=== PATIENT | male | born 1990 | race Caucasian/White ===

== ENCOUNTER → 2017-05-23 11:48 | Outpatient (CLI) | payer OTHER, SELFPAY ==
--- NOTE | 2017-05-23 16:40 | STRESSREP ---
Stress Test Report Exercise stress test 26-year-old man with history of chest pain. Stress protocol Resting EKG demonstrates normal sinus rhythm with a rate of 93 bpm. Normal intervals and noted. Resting blood pressure 732/90 mmHg. The patient sized according to regular Issa protocol for total duration of 10 minutes completing 1 minute into stage IV of the Issa protocol. The maximum heart rate attained was 184 bpm which was 94% of maximum predicted heart rate the maximum workload attained was 11.7 metabolic equivalents. At rest there were no ST or T-wave changes noted suggest ischemia and at peak exercise upsloping ST changes only were noted with no meet the criteria for ischemia. The resting blood pressure is 132/90 with a peak blood pressure 164/86 mmHg. Rate pressure product was 20,000. No clinical angina was noted. Arrhythmias were noted. Conclusion: Exercise stress test with no evidence of ischemia at a high workload. Excellent functional capacity.
--- NOTE | 2017-05-23 16:43 | STRESSREP_ITS ---
Stress Test Report Exercise stress test 26-year-old man with history of chest pain. Stress protocol Resting EKG demonstrates normal sinus rhythm with a rate of 93 bpm. Normal intervals and noted. Resting blood pressure 732/90 mmHg. The patient sized according to regular Issa protocol for total duration of 10 minutes completing 1 minute into stage IV of the Issa protocol. The maximum heart rate attained was 184 bpm which was 94% of maximum predicted heart rate the maximum workload attained was 11.7 metabolic equivalents. At rest there were no ST or T-wave changes noted suggest ischemia and at peak exercise upsloping ST changes only were noted with no meet the criteria for ischemia. The resting blood pressure is 132/90 with a peak blood pressure 164/86 mmHg. Rate pressure product was 20, 000. No clinical angina was noted. Arrhythmias were noted. Conclusion: Exercise stress test with no evidence of ischemia at a high workload. Excellent functional capacity.
== END ==
PROVIDERS: Family Provider Family Medicine; PCP Family Medicine; Visit Provider Nurse Practitioner Family
DX: I10 Essential (primary) hypertension (principal); R94.31 Abnormal electrocardiogram [ECG] [EKG]
CPT/HCPCS: 93017

== ENCOUNTER 2018-12-08 14:36 | Emergency (ER) | payer OTHER, SELFPAY ==
[2018-12-08 14:38] VITALS: BP 161/93; PULSE 106; RESP 18; TEMP 37; O2SAT 98; BMI 39.2
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
[2018-12-08 15:24] VITALS: BP 155/91; PULSE 97; RESP 16; O2SAT 99
== END 2018-12-08 15:26 | disposition home or self-care (01) ==
PROVIDERS: Emergency Provider Physician Assistant Medical; Family Provider Family Medicine; PCP Family Medicine
DX: T67.5XXA Heat exhaustion, unspecified, initial encounter (principal); I10 Essential (primary) hypertension; Z87.891 Personal history of nicotine dependence; Z79.899 Other long term (current) drug therapy
CPT/HCPCS: 99285; J7030

== ENCOUNTER → 2019-04-23 12:56 | Outpatient (CLI) | payer OTHER, SELFPAY ==
--- NOTE | 2019-04-23 13:05 | RAD_ITS ---
STUDY: X-RAY - LUMBAR SPINE REASON FOR EXAM: Male, 28 years old. Lumbar pain TECHNIQUE: 5 view(s) of the lumbar spine were obtained with flexion and extension views. COMPARISON: None FINDINGS: Normal lumbar lordosis. There is no substantial scoliosis. There is a normal alignment of the vertebrae. Normal flexion and extension. No subluxations. Normal vertebral bodies and endplates. Normal disc space heights. The soft tissue structures are unremarkable. RAD/L/S Spine Min 4 Views IMPRESSION: Normal x-ray examination of the lumbar spine. Electronically Signed: Dylan Gordon MD at 23:59 EST , Service support ,
--- NOTE | 2019-04-23 13:05 | RAD_ITS ---
STUDY: X-RAY - LUMBAR SPINE REASON FOR EXAM: Male, 28 years old. LUMBAR PAIN TECHNIQUE: 4 view(s) of the lumbar spine were obtained with flexion and extension views. COMPARISON: None FINDINGS: Normal lumbar lordosis. There is no substantial scoliosis. There is a normal alignment of the vertebrae. Normal flexion and extension. No subluxations. Normal vertebral bodies and endplates. Normal disc space heights. There is no demonstrated fracture. The soft tissue structures are unremarkable. RAD/L/S Spine Min 4 Views IMPRESSION: Normal x-ray examination of the lumbar spine. Electronically Signed: Dylan Gordon MD at 23:58 EST , Service support ,
== END ==
PROVIDERS: PCP Family Medicine
DX: M51.26 Other intervertebral disc displacement, lumbar region (principal)
CPT/HCPCS: 72110

== ENCOUNTER → 2022-04-09 | Outpatient (CLI) | payer OTHER, SELFPAY ==
[2022-04-09 12:24] LABS: Absolute Lymphocyte Count 1.84 X10^3/uL (0.83-4.51); Absolute Neutrophil Count 6.5 X10^3/uL (2.0-7.7); Basophil# 0.11 X10^3/uL; Basophil% 1.2 % (0-1); Eosinophil# 0.14 X10^3/uL; Eosinophils% 1.5 % (0-5); Hemoglobin 15.3 g/dL (13.0-16.5); Lymphocyte # 1.84 X10^3/ul (0.83-4.51); Lymphocyte % 19.6 % (19-41); Mean Corp Hgb Conc 33.3 g/dL (32-36); Mean Corpuscular Hgb 27.8 pg (27.0-32.0); Mean Corpuscular Volume 83.5 fL (80-94); Monocyte# 0.68 X10^3/uL; Monocyte% 7.3 % (0-10); NRBC Flagged by Analyzer 0 % (0-5); Neutrophil # 6.52 X10^3/uL (2.7-7.7); Neutrophil % 69.5 % (47-70); Platelet Count 316 K/mm3 (150-450); RBC Distribution Width CV 12.4 % (11.6-14.6); RBC Distribution Width SD 37.5 fl (35.1-43.9); Red Blood Count 5.51 M/mm3 (4.6-6.2); White Blood Count 9.4 K/mm3 (4.4-11.0)
[2022-04-09 12:48] LABS: Hemoglobin A1c 5.2 % (3.8-5.6)
[2022-04-09 13:04] LABS: ALB/GLOB Ratio 1.2 RATIO (0.9-2.4); AST(SGOT) 21 U/L (15-37); Alanine Aminotransfer ALT/SGPT 58 U/L (16-61); Albumin, Serum 4.2 g/dL (3.2-5.0); Alkaline Phosphatase 89 U/L (45-117); Anion Gap 7 (5-15); BUN 19 mg/dL (7-18); BUN/Creat Ratio 17.3 RATIO (10-20); Calcium,Total 9.4 mg/dL (8.5-10.1); Chloride 103 mmol/L (98-107); Cholesterol 187 mg/dL (200); EST Glomerular Filtration Rate 83 mL/min (>60); Est Glom Filt Rate - Afr Amer 101 mL/min (>60); Globulin 3.6 g/dL (2.2-4.2); Glucose 110 mg/dL (74-106); High Density Lipoprotein 37 mg/dL; Potassium 4.7 mmol/L (3.5-5.1); Protein, Total 7.8 g/dL (6.4-8.2); Sodium Level 137 mmol/L (136-145); Thyroid Stim Hormone (TSH) 1.54 uIU/mL (0.358-3.74); Triglycerides 115 mg/dL; Very Low Density Lipoprotein 23 mg/dL (5-40)
== END | disposition home or self-care (01) ==
LOC: BIMLAB 09:55
PROVIDERS: PCP Nurse Practitioner Family; Referring Provider Nurse Practitioner Family; Visit Provider Nurse Practitioner Family
DX: I10 Essential (primary) hypertension (principal); R00.0 Tachycardia, unspecified; E66.9 Obesity, unspecified; E78.5 Hyperlipidemia, unspecified
CPT/HCPCS: 36415; 80053; 80061; 83036; 84443; 85025

== ENCOUNTER → 2023-04-20 | Outpatient (CLI) | payer OTHER, SELFPAY ==
--- NOTE | 2023-04-20 09:30 | RAD_ITS ---
STUDY: X-RAY - LUMBAR SPINE REASON FOR EXAM: Male, 32 years old. LOW BACK PAIN TECHNIQUE: 3 view(s) of the lumbar spine were obtained. COMPARISON: None FINDINGS: Normal lumbar lordosis. There is no substantial scoliosis. There is a normal alignment of the vertebrae. Normal vertebral bodies and endplates. Normal disc space heights. The soft tissue structures are unremarkable. RAD/Lumbar Spine 2 or 3 Views IMPRESSION: Normal x-ray examination of the lumbar spine. Electronically Signed: Salty Lowery MD at 16:54 EST ,
--- NOTE | 2023-04-20 09:30 | RAD_ITS ---
STUDY: X-RAY - RIGHT HAND REASON FOR EXAM: Male, 32 years old. PAIN IN RIGHT HAND TECHNIQUE: 3 view(s) of the hand. COMPARISON: None. FINDINGS: Normal radiocarpal articulation. Normal distal radioulnar joint. Normal visualized carpal bones. Normal carpal articulations Normal carpometacarpal articulation of the thumb. Normal second through fifth carpometacarpal joints. Normal metacarpi. Normal metacarpophalangeal joint of the thumb. Normal interphalangeal joint of the thumb. Normal proximal and distal phalanges of the thumb. Normal metacarpophalangeal joints of the second through fifth fingers. Normal proximal and distal interphalangeal joints of the second through fifth fingers. Normal phalanges of the second through fifth fingers. The soft tissue structures are unremarkable. RAD/Hand 2 Views IMPRESSION: Normal x-ray examination of the hand. Electronically Signed: Salty Lowery MD at 17:05 EST ,
--- OUTSIDE RECORDS SUMMARY | 2023-04-20 09:43 | XMS RPT_ITS | CCD ---
Author Name Unknown Address [address] [place] [address] Organization [facility] Care Team Providers Care Card Processing Clerk Name Role Phone Lady HURSTN.SUPERVISOR PERSONNEL CLERKS, DNP, Ismael Primary Care Provider Medications Current Medications Medication Drug Class(es) Dates Sig (Normalized) Sig (Original) lisinopril 10 mg oral tablet (2 sources) Angiotensin Converting Enzyme Inhibitor Start: 10-24-2020 End: 06-15-2022 take 1 tablet by mouth once daily lisinopril (ZESTRIL, PRINIVIL) 10 mg tablet Indications: Hypertension, essential Take 1 tablet by mouth once daily. 90 tablet 3 06/15/2021 06/15/2022 Active Completed/Discontinued Medications Medication Drug Class(es) Dates Sig (Normalized) Sig (Original) CPAP (2 sources) Start: 11-16-2018 CPAP Indicatio ns: Mild obstructive sleep apnea Changing DME: Auto PAP @ 5-20 cm of water with humidification. Mask (per patient preference) optional chin strap (if indicated) , filters, tubing, humidifier and lifetime supplies. 1 Device 0 11/16/2018 Active Problems Problem Classification Problem Date Documented Da te Episodic/Chronic Cardiac dysrhythmias (2 sources) Tachycardia; Translations: [Tachycardia, unspecified] Onset: 10-24-2020 Episodic Disorders of lipid metabolism (1 source) Hyperlipidemia; Translations: [Hyperlipidemia, unspecified] Onset: 11-30-2017 11-30-2017 Chronic Essential hypertension (2 sources) Essential hypertension; Translations: [Essential (primary) hypertension] Onset: 05-10-2017 Chronic Other nutritional; endocrine; and metabolic disorders (2 sources) Body mass index 40+ - severely obese; Translations: [Morbid (severe) obesity due to excess calories] Onset: 07-18-2017 Chronic Residual codes; unclassified (2 sources) Obstructive sleep apnea syndrome; Translations: [Obstructive sleep apnea (adult) (pediatric)] Onset: 08-02-2017 Chronic Results Test Name Value Interpretation Reference Range Facil ity Vital Signs Date Time Vital Sign Value Performing Clinician Claudia nguyen 06-15-2021 13:02-0400 Body weight 140.62 kg Ismael Narayanan APRN.CNP, DNP Work Phone: [facility] 06-15-2021 13:02-0400 Diastolic blood pressure 78 mm[Hg] Ismael Narayanan APRN.CNP, DNP Work Phone: [facility] 06-15-2021 13:02-0400 Heart rate 84 /min Ismael Narayanan APRN.CNP, DNP Work Phone: [facility] 06-15-2021 13:02-0400 Respiratory rate 14 /min Ismael Narayanan APRN.CNP, DNP Work Phone: [facility] 06-15-2021 13:02-0400 Systolic blood pressure 132 mm[Hg] Ismael Narayanan APRN.CNP, DNP Work Phone: [facility] Encounters Encounter Date Encounter Type Care Provider Facility Start: 06-15-2021 End: 06-15-2021 Patient encounter procedure Ismael Narayanan APRN.CNP, DNP Work Phone: [facility] Procedures Date Procedure Procedure Detail Performing Clinician Start: 10-24-2020 Adult depression screening assessment Ismael Narayanan APRN.CNP, DNP Work Phone: Plan of Treatment Date Care Activity Detail Author Start: 06-15-2022 ANNUAL PCP TEAM BLANKET FOLDER MICHELLE DISEASE VISIT ANNUAL PCP TEAM CHRONIC DISEASE VISIT [facility] Start: 06-15-2022 COVID-19 VACCINE (1) COVID-19 VACCIN E (1) [facility] Immunizations Immunization Date Immunization Notes Care Provider Jesús hawkins 10-09-2009 Meningococcal, MCV4, unspecified conjugate formulation(groups A, C, Y and W-135) Ismael Narayanan APRN.CNP, DNP Work Phone: [facility] 09-26-2007 tetanus toxoid, redu denise diphtheria toxoid, and acellular pertussis vaccine, adsorbed Ismael Blaz LAMP INSPECTOR.[facility] Work Phone: [facility] 09-30-2005 hepatitis B vaccine, pediatric or pediatric/adolescent dosage Ismael Blagia LAMP INSPECTOR.[facility] Work Phone: [facility] Work Phone: 12-12-2004 hepatitis B immune globulin Ismael Blagia LAMP INSPECTOR.[facility] Work Phone: [facility] 10-31-2004 hepatitis B immune globulin Ismael Blagia LAMP INSPECTOR.[facility] Work Phone: [facility] 11-11-1997 diphtheria, tetanus toxoids and pertussis vaccine Ismael Blaz LAMP INSPECTOR.[facility] Work Phone: [facility] 11-11-1997 measles, mumps and rubella virus vaccine Ismael Blaz LAMP INSPECTOR.[facility] Work Phone: [facility] 11-11-1997 poliovirus vaccine, inactivated Ismael Blaz LAMP INSPECTOR.[facility] Work Phone: [facility] 10-28-1997 poliovirus vaccine, inactivated Ismael Blaz LAMP INSPECTOR.[facility] Work Phone: [facility] 12-18-1995 haemophilus influenz ae type b vaccine, HbOC conjugate Ismael Blaz LAMP INSPECTOR.[facility] Work Phone: [facility] 03-30-1993 diphtheria, tetanus toxoids and pertussis vaccine Ismael Blaz LAMP INSPECTOR.[facility] Work Phone: [facility] 03-30-1993 poliovirus vaccine, inactivated Ismael Blaz LAMP INSPECTOR.[facility] Work Phone: [facility] 12-17-1992 measles, mumps and rubella virus vaccine Ismael Blaz LAMP INSPECTOR.[facility] Work Phone: [facility] 03-24-1992 diphtheria, tetanus toxoids and pertussis vaccine Ismael Blaz LAMP INSPECTOR.[facility] Work Phone: [facility] 03-24-1992 haemophilus influenz ae type b vaccine, HbOC conjugate Ismael Blaz LAMP INSPECTOR.[facility] Work Phone: [facility] 01-21-1992 diphtheria, tetanus toxoids and pertussis vaccine Ismael Narayanan LAMP INSPECTOR.[facility] Work Phone: [facility] 01-21-1992 haemophilus influenz ae type b vaccine, HbOC conjugate Ismael Narayanan APRN.[facility] Work Phone: [facility] 01-21-1992 poliovirus vaccine, inactivated Ismael Narayanan APRN.[facility] Work Phone: [facility] 1991 diphtheria, tetanus toxoids and pertussis vaccine Ismael Narayanan LAMP INSPECTOR.[facility] Work Phone: [facility] 1991 haemophilus influenz ae type b vaccine, HbOC conjugate Ismael Narayanan APRN.PAZ ROLAND Work Phone: [facility] Payers Date Payer Category Payer Unknown O [employer] [id number] 2016-Present [phone] [address] [place] [address] O [id number] 1991 Unknown [id number] Unknown [id number] Unknown [id number] Social History Date Type Detail Facility [facility] Work Phone: Start: 06-22-2010 Tobacco use and exposure Smokeless tobacco non-user [facility] Work Phone: Start: 06-15-2021 Alcohol intake 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 Author Type: Nurse Practitioner Type: Progress Notes Filed: 06/15/2021 4:41 PM Note Text: Chief Complaint Patient presents with: F/U 6 months Episodes of increased HR HPI Susana Stephens is a 30 year old male who presents here today for a established physical exam. Presents to the [facility] as an established patient of mine. No recent urgent care visits, ER visits, or hospitalizations Past Medical History: HTN, BREE, chronic back pain, obesity, tachycardia Specialty Providers: None HTN: Here for routine follow up appt. Diagnosed with high blood pressure several years ago. Placed on lisinopril. Has been on lisinopril for several years without any significant dosage changes. Denies side effects from medication. Compliant with medication. Blood pressures typically well controlled. Denies any headaches, lightheadedness or dizziness. No chest pain, difficulty breathing or shortness of breath. Lab work, Zio patch and physical exam completed. Unremarkable findings. Zio patch results unremarkable. Continues to have high normal heart rate. Heart rates have been stable. Denies CP or SOB. Past medical history, appointments, medications, allergies reviewed 06/15/2021 Previous Medical History PAST MEDICAL HISTORY Diagnosis Date - Hypertension, essential 05/10/2017 - Obesity, Class III, BMI 40-49.9 (morbid obesity) ([facility]) 07/18/2017 - BREE on CPAP DME [facility] - Tension headache Previous Surgical History PAST SURGICAL HISTORY Procedure Laterality Date - TONSILLECTOMY AND ADENOIDECTOMY Family History FAMILY HISTORY Problem Relation Age of Onset - Hypertension Mother - Prostate Cancer Maternal Grandfather - Hypertension Brother - Lipids Brother Patient Allergies ALLERGIES No Known Allergies Current Medications Current Outpatient Medications on File Prior to Visit Medication Sig - lisinopril (ZESTRIL, PRINIVIL) 10 mg tablet Take 1 tablet by mouth once daily. - CPAP Changing DME: Auto PAP @ 5-20 cm of water with humidification. Mask (per patient preference) optional chin strap (if indicated) , filters, tubing, humidifier and lifetime supplies. No current facility-administered medications on file prior to visit. Social History Social History Tobacco Use - Smoking status: Passive Smoke Exposure - Never Smoker - Smokeless tobacco: Never Used - Tobacco comment: parents smoke Vaping Use - Vaping Use: Never used Substance Use Topics - Alcohol use: No - Drug use: No Review of Symptoms GENERAL: No unintentional weight loss, malaise or fevers. No night sweats RESPIRATORY: No dyspnea or shortness of breath CARDIOVASCULAR: Negative for chest pain. See HPI. EXAM: BP 132/78 Pulse 84 Resp 14 Wt (!) 140.6 kg (310 lb) BMI 43.40 kg/m? General Appearance: Well appearing, alert, in no acute distress, well-hydrated, well nourished. Morbidly obese Skin: Skin color normal Head: Normocephalic Chief Complaint Patient presents with: F/U 6 months HPI Susana Stephens is a 30 year old male who presents here today for a several day history of nausea, vomiting and diarrhea. This is an established patient of Dr. Ismael Narayanan APRN.SUPERVISOR PERSONNEL CLERKS, DNP. This is a new patient to me. Denies any recent urgent care visits, ER visits or hospitalizations. States a several day history of Past medical history, appointments, medications, allergies reviewed 06/15/2021 Previous Medical History PAST MEDICAL HISTORY Diagnosis Date - Hypertension, essential 05/10/2017 - Obesity, Class III, BMI 40-49.9 (morbid obesity) ([facility]) 07/18/2017 - BREE on CPAP DME [facility] - Tension headache Previous Surgical History PAST SURGICAL HISTORY Procedure Laterality Date - TONSILLECTOMY AND ADENOIDECTOMY Family History FAMILY HISTORY Problem Relation Age of Onset - Hypertension Mother - Prostate Cancer Maternal Grandfather - Hypertension Brother - Lipids Brother Patient Allergies ALLERGIES No Known Allergies Current Medications Current Outpatient Medications on File Prior to Visit Medication Sig - CPAP Changing DME: Auto PAP @ 5-20 cm of water with humidification. Mask (per patient preference) optional chin strap (if indicated) , filters, tubing, humidifier and lifetime supplies. - CPAP Need for supplies: suitable mask per pt preference, chin strap, head gear, humidity, tubing, lifetime supplies. G47.33 Obstructive Sleep Apnea No current facility-administered medications on file prior to visit. Social History Social History Tobacco Use - Smoking status: Passive Smoke Exposure - Never Smoker - Smokeless tobacco: Never Used - Tobacco comment: parents smoke Vaping Use - Vaping Use: Never used Substance Use Topics - Alcohol use: No - Drug use: No Review of Symptoms GENERAL: No weight loss, malaise or fevers. HEENT: Negative for frequent or significant headaches RESPI (more content not included)... [facility] 06-15-2021 Instructions Ismael Narayanan APRN.PAZ ROLAND - 06/15/2021 1:27 PM EDT Follow up with Ismael Narayanan APRN.PAZ ROLAND in 1 year Continue with Lisinopril for BP. Continue with weight loss goals. Perform fasting lab work prior to next appt. Clinic to call with results or will send through [employer]. You can schedule an appointment for lab work at our front desk manager. Please fast 12 hours prior to blood work. You may have water, medications and black coffee during that fasting time. Lab hours are from 7:30 - 5:30 pm - and from 8:00 am -12:00pm Tuesday. Return to the clinic or seek care at [facility] for any worsening signs or symptoms Healthy Habits: Recommend regular physical activity, nutrition and healthy eating habits. Consume a variety of foods every day focusing on fruits, vegetables and lean meats). Eat foods low in fat, saturated fat and cholesterol. Eat a limited amount of salt and sodium. Drink adequate amounts of water and limit sugary drinks. Exercise portion control in meal selection. Establish a mindset of a wellness approach to health. Thank you for allowing me to provide your care today. I look forward to seeing you again and maintaining your health. Ismael Narayanan APRN.PAZ ROLAND documented in this encounter [facility] 06-15-2021 History of Present illness Narrative Chief Complaint Patient presents with: F/U 6 months Episodes of increased HR HPI Susana Stephens is a 30 year old male who presents here today for a established physical exam. Presents to the [facility] as an established patient of mine. No recent urgent care visits, ER visits, or hospitalizations Past Medical History: HTN, BREE, chronic back pain, obesity, tachycardia Specialty Providers: None HTN: Here for routine follow up appt. Diagnosed with high blood pressure several years ago. Placed on lisinopril. Has been on lisinopril for several years without any significant dosage changes. Denies side effects from medication. Compliant with medication. Blood pressures typically well controlled. Denies any headaches, lightheadedness or dizziness. No chest pain, difficulty breathing or shortness of breath. Lab work, Zio patch and physical exam completed. Unremarkable findings. Zio patch results unremarkable. Continues to have high normal heart rate. Heart rates have been stable. Denies CP or SOB. Past medical history, appointments, medications, allergies reviewed 06/15/2021 Previous Medical History PAST MEDICAL HISTORY Diagnosis Date Hypertension, essential 05/10/2017 Obesity, Class III, BMI 40-49.9 (morbid obesity) ([facility]) 07/18/2017 BREE on CPAP DME [facility] Tension headache Previous Surgical History PAST SURGICAL HISTORY Procedure Laterality Date TONSILLECTOMY & ADENOIDECTOMY <AGE 13 2002 Family History FAMILY HISTORY Problem Relation Age of Onset Hypertension Mother Prostate Cancer Maternal Grandfather Hypertension Brother Lipids Brother Patient Allergies ALLERGIES No Known Allergies Current Medications Current Outpatient Medications on File Prior to Visit Medication Sig lisinopril (ZESTRIL, PRINIVIL) 10 mg tablet Take 1 tablet by mouth once daily. CPAP Changing DME: Auto PAP @ 5-20 cm of water with humidification. Mask (per patient preference) optional chin strap (if indicated) , filters, tubing, humidifier and lifetime supplies. No current facility-administered medications on file prior to visit. Social History Social History Tobacco Use Smoking status: Passive Smoke Exposure - Never Smoker Smokeless tobacco: Never Used Tobacco comment: parents smoke Vaping Use Vaping Use: Never used Substance Use Topics Alcohol use: No Drug use: No Review of Symptoms GENERAL: No unintentional weight loss, malaise or fevers. No night sweats RESPIRATORY: No dyspnea or shortness of breath CARDIOVASCULAR: Negative for chest pain. See HPI. EXAM: BP 132/78 Pulse 84 Resp 14 Wt (!) 140.6 kg (310 lb) BMI 43.40 kg/m General Appearance: Well appearing, alert, in no acute distress, well-hydrated, well nourished. Morbidly obese Skin: Skin color normal Head: Normocephalic Chief Complaint Patient presents with: F/U 6 months HPI Susana Stephens is a 30 year old male who presents here today for a several day history of nausea, vomiting and diarrhea. This is an established patient of Dr. Ismael Narayanan APRN.SUPERVISOR PERSONNEL CLERKS, DNP. This is a new patient to me. Denies any recent urgent care visits, ER visits or hospitalizations. States a several day history of Past medical history, appointments, medications, allergies reviewed 06/15/2021 Previous Medical History PAST MEDICAL HISTORY Diagnosis Date Hypertension, essential 05/10/2017 Obesity, Class III, BMI 40-49.9 (morbid obesity) ([facility]) 07/18/2017 BREE on CPAP DME [facility] Tension headache Previous Surgical History PAST SURGICAL HISTORY Procedure Laterality Date TONSILLECTOMY & ADENOIDECTOMY <AGE 13 2002 Family History FAMILY HISTORY Problem Relation Age of Onset Hypertension Mother Prostate Cancer Maternal Grandfather Hypertension Brother Lipids Brother Patient Allergies ALLERGIES No Known Allergies Current Medications Current Outpatient Medications on File Prior to Visit Medication Sig CPAP Changing DME: Auto PAP @ 5-20 cm of water with humidification. Mask (per patient preference) optional chin strap (if indicated) , filters, tubing, humidifier and lifetime supplies. CPAP Need for supplies: suitable mask per pt preference, chin strap, head gear, humidity, tubing, lifetime supplies. G47.33 Obstructive Sleep Apnea No current facility-administered medications on file prior to visit. Social History Social History Tobacco Use Smoking status: Passive Smoke Exposure - Never Smoker Smokeless tobacco: Never Used Tobacco comment: parents smoke Vaping Use Vaping Use: Never used Substance Use Topics Alcohol use: No Drug use: No Review of Symptoms GENERAL: No weight loss, malaise or fevers. HEENT: Negative for frequent or significant headaches RESPIRATORY: Negative for cough, wheezing, dyspnea or shortness of breath CARDIOVASCULAR: Negative for chest pain GI: No nausea, vomiting MUSCULOSKELETAL: Negative for generalized joint pain EXAM: BP 132/78 Pulse 84 Resp 14 Wt (!) 140.6 kg (310 lb) BMI 43.40 kg/m General Appearance: Well appearing, alert, in no acute distress, well-hydrated, well nourished. Morbidly obese Skin: Skin color, texture, turgor normal Head: Normocephalic, no masses, lesions Eyes: Anicteric sclera. No redness or drainage. Neck: Supple, no mass or lumps. Lymph Nodes: No cervical, supraclavicular, pre/post-auricular, or submandibular lymphadenopathy Lungs: Lungs clear to auscultation. No wheezing, rhonchi, rales. Heart: RRR without murmur, gallop, or rubs. No ectopy. Extremities: No deformities, edema, skin discoloration. Pulses: 2+ at radial. Psych: Attitude - cooperative, easily engaged in conversation Appearance - normal, hygiene and grooming appropriate Affect - euthymic, normal mood Mental status: Alert, attentive. Speech is clear and fluent with good repetition, comprehension Coordination: There are no abnormal or extraneous movements. Gait/Stance: Posture is normal. Gait is steady with normal steps Health Maintenance List HEPATITIS C SCREENING Never done DTAP,TDAP,TD(7 - Td or Tdap) due on 09/25/2017 INFLUENZA(1) due on 09/24/2021 COVID-19 VACCINE(1) due on 06/15/2022 BP CONTROLLED (<130/80) due on 10/24/2021 DEPRESSION SCREENING due on 10/24/2021 ANNUAL PCP TEAM CHRONIC DISEASE VISIT due on 06/15/2022 MENINGOCOCCAL CONJUGATE Completed HIV SCREENING Discontinued Data reviewed Last 5 Encounter BP Readings: Date: BP: 06/15/2021 132/78 12/15/2020 136/84 10/24/2020 134/82 04/23/2019 136/84 11/16/2018 128/75 BMI Readings from Last 5 Encounters: 06/15/21 : 43.40 kg/m 12/15/20 : 40.88 kg/m 10/24/20 : 41.16 kg/m 04/23/19 : 41.58 kg/m 05/29/18 : 38.91 kg/m Last 5 Encounter Wt Readings: Date: Wt: 06/15/2021 140.6 kg (310 lb) 12/15/2020 132.5 kg (292 lb) 10/24/2020 133.4 kg (294 lb) 04/23/2019 134.7 kg (297 lb) 05/29/2018 125.6 kg (277 lb) Health Maintenance List COVID-19 VACCINE(1) Never done HEPATITIS C SCREENING Never done HIV SCREENING Never done BP CONTROLLED (<130/80) Never done DTAP,TDAP,TD(7 - Td or Tdap) due on 09/25/2017 DEPRESSION SCREENING due on 05/30/2019 ANNUAL PCP TEAM CHRONIC DISEASE VISIT due on 04/23/2020 INFLUENZA(1) due on 11/26/2020 MENINGOCOCCAL CONJUGATE Completed Data reviewed Last 10 Encounter BP Readings: Date: BP: 06/15/2021 132/78 12/15/2020 136/84 10/24/2020 134/82 04/23/2019 136/84 11/16/2018 128/75 09/21/2018 118/77 05/29/2018 124/80 11/30/2017 128/77 10/13/2017 123/69 05/30/2017 123/69 BMI Readings from Last 10 Encounters: 06/15/21 : 43.40 kg/m 12/15/20 : 40.88 kg/m 10/24/20 : 41.16 kg/m 04/23/19 : 41.58 kg/m 05/29/18 : 38.91 kg/m 11/30/17 : 40.45 kg/m 05/30/17 : 40.31 kg/m 05/09/17 : 40.73 kg/m 06/17/15 : 40.45 kg/m 08/15/12 : 32.17 kg/m Last 10 Encounter Wt Readings: Date: Wt: 06/15/2021 140.6 kg (310 lb) 12/15/2020 132.5 kg (292 lb) 10/24/2020 133.4 kg (294 lb) 04/23/2019 134.7 kg (297 lb) 05/29/2018 125.6 kg (277 lb) 11/30/2017 130.6 kg (288 lb) 05/30/2017 130.2 kg (287 lb) 05/09/2017 131.5 kg (290 lb) 06/17/2015 130.6 kg (288 lb) 08/15/2012 103.9 kg (229 lb) Medication and allergy list reviewed, reconciled and updated 06/15/2021 Component Latest Ref Rng & Units 10/24/2020 WBC 3.70 - 11.00 k/uL 9.57 RBC 4.20 - 6.00 m/uL 5.39 Hemoglobin 13.0 - 17.0 g/dL 15.3 Hematocrit 39.0 - 51.0 % 45.1 MCV 80.0 - 100.0 fL 83.7 MCH 26.0 - 34.0 pG 28.4 MCHC 30.5 - 36.0 g/dL 33.9 RDW-CV 11.5 - 15.0 % 12.2 Platelet Count 150 - 400 k/uL 316 MPV 9.0 - 12.7 fL 10.2 Neut% % 72.1 Abs Neut (ANC) 1.45 - 7.50 k/uL 6.90 Lymph% % 17.5 Abs Lymph 1.00 - 4.00 k/uL 1.67 Graham% % 7.8 Abs Graham <0.87 k/uL 0.75 Eosin% % 1.6 Abs Eosin <0.46 k/uL 0.15 Baso% % 1.0 Abs Baso <0.11 k/uL 0.10 Nucleated Reds 0 /100 WBC 0.0 Absolute nRBC <0.01 k/uL <0.01 Diff Type Auto Diff Protein, Total 6.3 - 8.0 g/dL 7.1 Albumin 3.9 - 4.9 g/dL 4.7 Calcium 8.5 - 10.2 mg/dL 9.3 Bilirubin, Total 0.2 - 1.3 mg/dL 0.5 Alkaline Phosphatase 38 - 113 U/L 84 AST 14 - 40 U/L 26 Glucose 74 - 99 mg/dL 101 (H) BUN 9 - 24 mg/dL 15 Creatinine 0.73 - 1.22 mg/dL 1.03 Sodium 136 - 144 mmol/L 139 Potassium 3.7 - 5.1 mmol/L 3.9 Chloride 97 - 105 mmol/L 102 CO2 22 - 30 mmol/L 24 Anion Gap 9 - 18 mmol/L 13 ALT 10 - 54 U/L 49 eGFR- >60 eGFR-All Other Races . >60 Cholesterol, Total <200 mg/dL 170 Triglyceride <150 mg/dL 118 HDL Cholesterol >39 mg/dL 40 LDL Cholesterol <100 mg/dL 106 (H) Non HDL Cholesterol <130 mg/dL 130 (H) Fasting Time hrs 12 VLDL Cholesterol <30 mg/dL 24 TC:HDL Ratio <5.10 4.25 LDL:HDL Ratio <2.54 2.65 (H) TSH 0.270 - 4.200 uU/mL 1.650 T3 79 - 165 ng/dL 139 Free T4 0.9 - 1.7 ng/dL 1.1 ASSESSMENT/PLAN: 1. Increased heart rate - ICD9: 785.0, ICD10: R00.0 (primary diagnosis) MDM: Borderline tachycardia. Clinically stable. Zio patch is unremarkable. Shared decision making to continue to monitor heart rates. He has a heart rate monitor and wears this daily. Reviewed with patient previous lab work, Zio monitor results and past twelve-lead EKG was unremarkable. No significant changes. Previous stress test completed in 2018 was normal. Continue with lisinopril. Continue to monitor blood pressure. Plan: Shared decision made to follow-up in 12 months Consider beta-robe at that time or increase of lisinopril Continue to monitor heart rate and blood pressure. 2. Hypertension, essential - ICD9: 401.9, ICD10: I10 - good control - Continue current medication(s) - Encouraged dietary sodium restriction/DASH diet - Recommended regular aerobic exercise. - Discussed need and benefit for weight loss. - Goal of BP <130/80 - Recommended no refined sugar, low refined starch, healthy oil intake (olive oil), healthy protein (fish) along the lines of the Mediterranean diet. - LISINOPRIL 10 MG TABLET 3. Obesity, Class III, BMI 40-49.9 (morbid obesity) (HCC) - ICD9: 278.01, ICD10: E66.01 Stable. Recommend regular physical activity, nutrition and healthy eating habits. Consume a variety of foods every day focusing on fruits, vegetables and lean meats). Eat foods low in fat, saturated fat and cholesterol. Eat a limited amount of salt and sodium. Drink adequate amounts of water and limit sugary drinks. Exercise portion control in meal selection. Establish a mindset of a wellness approach to health. 4. Mild obstructive sleep apnea - ICD9: 327.23, ICD10: G47.33 Clinically stable Continue CPAP use. Ismael Narayanan APRN.[employer]PER[employer], DNP This note was completed with [employer] dictation software. Note was reviewed for accuracy. There may be minor misspellings or grammar miscues with [employer] Dictation. I spent a total of 21 minutes on the date of the service which included preparing to see the patient, [id number] patient care, completing clinical documentation, performing a medically appropriate examination, counseling and educating the patient/family/caregiver and ordering medications, tests, or procedures. [place] [id number] This note was copied from previous note and exam dated 12/15/20. Author is Ismael Narayanan APRN.PAZ ROLAND note reviewed and changes have been made or updates noted in the copy & paste portion of an encounter. documented in this encounter [facility] 12-15-2020 Note HNO ID: [id number] Author: Ismael Narayanan APRN.PAZ ROLAND Service: ? Author Type: Nurse Practitioner Type: Progress Notes Filed: 12/15/2020 1:43 PM Note Text: Chief Complaint Patient presents with: Recheck: heart monitor results Episodes of increased HR HPI Susana Stephens is a 30 year old male who presents here today for a established physical exam. Past Medical History: HTN, BREE, chronic back pain, obesity, tachycardia Specialty Providers: None Presents to the [facility] as an established patient of mine. No recent urgent care visits, ER visits, or hospitalizations. HTN: Diagnosed with high blood pressure several years ago. Placed on lisinopril. Has been on lisinopril for several years without any significant dosage changes. Denies side effects from medication. Compliant with medication. Blood pressures typically well controlled. Denies any headaches, lightheadedness or dizziness. No chest pain, difficulty breathing or shortness of breath. Lab work, Zio patch and physical exam completed. Unremarkable findings. See Zio patch results below. Continues to have high normal heart rate. 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 . Past medical history, appointments, medications, allergies reviewed 12/15/2020 Previous Medical History PAST MEDICAL HISTORY Diagnosis Date - Hypertension, essential 05/10/2017 - Obesity, Class III, BMI 40-49.9 (morbid obesity) ([facility]) 07/18/2017 - BREE on CPAP DME [facility] - Tension headache Previous Surgical History PAST SURGICAL HISTORY Procedure Laterality Date - REMOVE TONSILS/ADENOIDS,<12 Y/O 2002 Family History FAMILY HISTORY Problem Relation Age of Onset - Hypertension Mother - Prostate Cancer Maternal Grandfather - Hypertension Brother - Lipids Brother Patient Allergies ALLERGIES No Known Allergies Current Medications Current Outpatient Medications on File Prior to Visit Medication Sig - lisinopril (ZESTRIL, PRINIVIL) 10 mg tablet Take 1 tablet by mouth once daily. - CPAP Changing DME: Auto PAP @ 5-20 cm of water with humidification. Mask (per patient preference) optional chin strap (if indicated) , filters, tubing, humidifier and lifetime supplies. No current facility-administered medications on file prior to visit. Social History Social History Tobacco Use - Smoking status: Passive Smoke Exposure - Never Smoker - Smokeless tobacco: Never Used - Tobacco comment: parents smoke Vaping Use - Vaping Use: Never used Substance Use Topics - Alcohol use: No - Drug use: No Review of Symptoms GENERAL: No unintentional weight loss, malaise or fevers. No night sweats RESPIRATORY: No dyspnea or shortness of breath CARDIOVASCULAR: Negative for chest pain. See HPI. EXAM: BP 136/84 Pulse 92 Temp 36.8 ?C (98.2 ?F) Resp 16 Wt 132.5 kg (292 lb) SpO2 96% BMI 40.88 kg/m? General Appearance: Well appearing, alert, in no acute distress, well-hydrated, well nourished. Morbidly obese Skin: Skin color normal Head: Normocephalic Extremities: No deformities, edema, skin discoloration. Good capillary refill. MSK: FROM of upper and lower extremities. No joint swelling or redness. Peripheral Pulses: Normal - radial and carotid 2+ Psych: Attitude - Cooperative, easily engaged in conversation Appearance - Normal hygiene and grooming appropriate Affect - Euthymic (normal mood), Mental status: Alert, attentive. Speech is clear and fluent with good repetition, comprehension Coordination: No abnormal or extraneous movements. Gait/Stance: Posture is normal. Gait is steady with normal steps Health Maintenance List COVID-19 VACCINE(1) Never done HEPATITIS C SCREENING Never done HIV SCREENING Never done BP CONTROLLED (<130/80) Never done DTAP,TDAP,TD(7 - Td or Tdap) due on 09/25/2017 DEPRESSION SCREENING due on 05/30/2019 ANNUAL PCP TEAM CHRONIC DISEASE VISIT due on 04/23/2020 INFLUENZA(1) due on 11/26/2020 MENINGOCOCCAL CONJUGATE Completed Data reviewed Last 5 Encounter BP Readings: Date: BP: 10/24/2020 134/82 04/23/2019 136/84 11/16/2018 128/75 09/21/2018 118/77 05/29/2018 124/80 BMI Readings from Last 5 Encounters: 12/15/20 : 40.88 kg/m? 10/24/20 : 41.16 kg/m? 04/23/19 : 41.58 kg/m? 05/29/18 : 38.91 kg/m? 11/30/17 : 40.45 kg/m? Last 5 Encounter Wt Readings: Date: Wt: 10/24/2020 133.4 kg (294 lb) 04/23/2019 134.7 kg (297 lb) 05/29/2018 125.6 kg (277 lb) 11/30/2017 130.6 kg (288 lb) 05/30/2017 130.2 kg (287 lb) Component Latest Ref Rng AND Units 10/24/2020 WBC 3.70 - 11.00 k/uL 9.57 RBC 4.20 - 6.00 m/uL 5.39 Hemoglobin 13.0 - 17.0 g/dL 15.3 Hematocrit 39.0 - 51.0 % 45.1 MCV 80.0 - 100.0 fL 83.7 MCH 26.0 - 34.0 pG 28.4 MCHC 30.5 - 36.0 g/dL 33.9 RDW-CV 11.5 - 15.0 % 12.2 Platelet Count 150 - 400 k/uL 316 MPV 9.0 - 12.7 fL 10.2 Neut% % 72.1 Abs Neut (ANC) 1.45 - 7.50 k/uL (more content not included)... [facility] 11-07-2020 Note HNO ID: [id number] Author: Rosemary Palmer LPN Service: ? Author Type: ? Type: Progress Notes Filed: 11/07/2020 9:28 AM Note Text: EVENT MONITOR DISPOSABLE PATCH INSTRUCTIONS Patient Name: Susana Stephens [facility] Number: [id number] Skin prepped and cleansed with alcohol Patch secured to prepped area Monitor Activated Serial #: [id number] Patient Instructed: 1.) Prescribed order timeframe 2.) Bathing guidelines 3.) Usage of event button and diary documentation 4.) Return of monitor at the end of prescribed order 5.) Call with problems [phone] or [phone] ext. [phone] Patient expresses a good understanding of instructions Rosemary Palmer LPN [facility] 10-24-2020 Note HNO ID: [id number] Author: Ismael Narayanan APRN.LUAN, DNP Service: ? Author Type: Nurse Practitioner Type: Progress Notes Filed: 12/15/2020 1:34 PM Note Text: Chief Complaint Patient presents with: Physical Episodes of increased HR HPI Susana Stephens is a 30 year old male who presents here today for a established physical exam. Past Medical History: HTN, BREE, chronic back pain, obesity Specialty Providers: None Presents to the [facility] as an established patient Dr. Marcus. Establishing care with me today. This is a new patient to me. No recent urgent care visits, ER visits, or hospitalizations. HTN: Diagnosed with high blood pressure several years ago. Placed on lisinopril. Has been on lisinopril for several years without any significant dosage changes. Denies side effects from medication. Compliant with medication. Blood pressures typically well controlled. Denies any headaches, lightheadedness or dizziness. No chest pain, difficulty breathing or shortness of breath. BREE: Diagnosed with obstructive sleep apnea several years ago. Currently on a CPAP machine. Compliant most days. Increased heart rate: Over the past several years he is had elevated heart rates at times. 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 Denies any loss of consciousness. Denies syncopal episodes. In 2018 he was worked up for this concern and had a EKG along with a stress test. Both were unremarkable. Past medical history, appointments, medications, allergies reviewed 10/24/2020 Previous Medical History PAST MEDICAL HISTORY Diagnosis Date - Hypertension, essential 05/10/2017 - Obesity, Class III, BMI 40-49.9 (morbid obesity) (HCC) 07/18/2017 - BREE on CPAP DME [facility] - Tension headache Previous Surgical History PAST SURGICAL HISTORY Procedure Laterality Date - REMOVE TONSILS/ADENOIDS,<13 Y/O 2002 Family History FAMILY HISTORY Problem Relation Age of Onset - Hypertension Mother - Prostate Cancer Maternal Grandfather - Hypertension Brother - Lipids Brother Patient Allergies ALLERGIES No Known Allergies Current Medications Current Outpatient Medications on File Prior to Visit Medication Sig - lisinopril (ZESTRIL, PRINIVIL) 10 mg tablet Take 1 tablet by mouth once daily. - CPAP Changing DME: Auto PAP @ 5-20 cm of water with humidification. Mask (per patient preference) optional chin strap (if indicated) , filters, tubing, humidifier and lifetime supplies. No current facility-administered medications on file prior to visit. Social History Social History Tobacco Use - Smoking status: Passive Smoke Exposure - Never Smoker - Smokeless tobacco: Never Used - Tobacco comment: parents smoke Vaping Use - Vaping Use: Never used Substance Use Topics - Alcohol use: No - Drug use: No Review of Symptoms GENERAL: No unintentional weight loss, malaise or fevers. No night sweats HEENT: Negative for frequent or significant headaches No significant change in vision. No blurry vision, double vision, or vision loss. No nasal discharge or nose bleeds. No sore throat, difficulty swallowing, mouth lesions or hoarseness No hearing loss. No earaches, ear pain, or ear discharge. NECK: Negative for lumps, pain and significant neck swelling RESPIRATORY: Negative for cough or hemoptysis. No wheezing, dyspnea or shortness of breath CARDIOVASCULAR: Negative for chest pain. See HPI. GI: No nausea, vomiting, or diarrhea. No blood in stool : No dysuria, frequency, urgency. No hematuria. MUSCULOSKELETAL: Negative for generalized joint pain, swelling, back pain or muscle aches SKIN: Negative for lesions, rash, and itching HEMATOLOGY/LYMPHOLOGY: Negative for prolonged bleeding, bruising easily or swollen nodes EXAM: BP 134/82 Pulse 87 Resp 16 Ht 180 cm (5' 10.87 ) Wt 133.4 kg (294 lb) SpO2 98% BMI 41.16 kg/m? General Appearance: Well appearing, alert, in no acute distress, well-hydrated, well nourished. Morbidly obese Skin: Skin color, texture, turgor normal, no suspicious rashes or lesions. Head: Normocephalic, no masses, lesions, tenderness or abnormalities. Eyes: Anicteric sclera. Pupils are equally round and reactive to light. Extraocular movements are intact. Ears: External ears normal, canals clear, TM's clear with adequate light reflex. Nose/Sinuses: Nares normal, septum midline, mucosa normal, no drainage or sinus tenderness. Oropharynx: Lips, mucosa, and tongue normal, teeth and gums normal, oropharynx nonreddened. Neck: Supple, no adenopathy; thyroid symmetric, normal size, no bruits. Lymph Nodes: No cervical lymphadenopathy, No supraclavicular lymphadenopathy Lungs: Lungs clear to auscultation. No wheezing, rhonchi, rales. Heart: RRR without murmur, gallop, or rubs. No ectopy. Normal S1 and S2. Abdomen: Abdomen soft, non-tender. Bowel sounds normal. No (more content not included)... [facility] 10-24-2020 Note HNO ID: [id number] Author: Terrell Herrera MD Service: Interventional Cardiology Author Type: Physician Type: Procedures Filed: 12/05/2020 2:49 PM Note Text: Patient Name: Susana Kat : 1990 Ordering Provider: Ismael Narayanan Indication: R00.0 Tachycardia, unspecified Type of Monitor: Extended Monitoring-Zio Patch Enrollment Dates: 11/07/2020-11/18/2020 [facility] 08-26-2020 Note HNO ID: [id number] Author: Rui Davenport Service: ? Author Type: ? Type: Progress Notes Filed: 08/26/2020 12:34 PM Note Text: Care Gap Reviewed: Controlling Blood Pressure Phone call placed to patient. Pt identified by name and : NO Outreach Outcome/Action: Unable to reach patient: Left message If patient deferred or declined to schedule appointment, please indicate the reason(s): Rui Davenport [facility] 08-26-2020 Note Patient Outreach (OR Q) SUSANA STEPHENS ([id number]) 1990 M Date Time Provider Department 08/26/20 RUI DAVENPORT During your visit today, we recorded the following information about you: Rui Davenport 08/26/2020 12:34 PM Signed Care Gap Reviewed: Controlling Blood Pressure Phone call placed to patient. Pt identified by name and : NO Outreach Outcome/Action: Unable to reach patient: Left message If patient deferred or declined to schedule appointment, please indicate the reason(s): Rui Davenport Allergies As of Date: 08/26/2020 (No Known Allergies) Date Reviewed: 04/23/2019 Reviewed by: Mery Neal LPN - Fully Assessed Reason for Visit: Population Health Navigation Outreach [3910] Cmt: Deferred Care Prescriptions as of 08/26/2020 Sig: LISINOPRIL 10 MG TABLET Take 1 tablet by mouth once d* CPAP Changing DME: Auto PAP @ 5-20* CPAP Need for supplies: suitable m* Problem List As Of Date 08/26/2020 Noted Resolved Other acne [L70.8] 09/26/2007 11/30/2017 Well adolescent visit [Z00.3] 10/09/2009 05/30/2017 Fracture of fibula, distal, closed [S82.839A] 06/08/2010 11/30/2017 Hypertension, essential [I10] 05/10/2017 Obesity, Class III, BMI 40-49.9 (morbid obesity*07/18/2017 Mild obstructive sleep apnea [G47.33] 08/02/2017 Hyperlipidemia with target LDL less than 130 [E*11/30/2017 Encounter Status:Closed by RUI DAVENPORT on 08/26/20 [facility] documented as of this encounter (statuses as of 06/15/2021) [facility] Diagnosis Increased heart rate- Primary Tachycardia, unspecified Hypertension, essential Unspecified essential hypertension Obesity, Class III, BMI 40-49.9 (morbid obesity) (HCC) Morbid obesity Mild obstructive sleep apnea Obstructive sleep apnea (adult) (pediatric) documented in this encounter [facility] Summary Purpose Family History No Family History Records FoundNo Family History Records FoundNo Family History Records FoundNo Family History Records Found Advance Directives No Advanced Directives Records FoundNo Advanced Directives Records FoundNo Advanced Directives Records FoundNo Advanced Directives Records Found Additional Source Comments (unrecognized sect ion and content) No Status Records FoundNo Status Records FoundNo Status Records FoundNo Status Records Found INFORMATION SOURCE (unrecogn ized section and content) DATE CREATED AUTHOR AUTHOR'S ORGANIZ ATION 11/03/2018 [facility] DATE CREATED AUTHOR AUTHOR'S ORGANIZ ATION 02/08/2019 [facility] DATE CREATED AUTHOR AUTHOR'S JOZEF ATION 06/16/2021 [facility] Source Comments (unrecognize d section and content) In the event this informatio n is protected by the Federal Confidentiality of Alcohol and Drug Abuse Patient Records regulations: The Federal rules restrict any use of the information to criminally investigate or prosecute any alcohol or drug abuse patient.[facility] Reason for Visit (unrecogniz ed section and content) Care Teams (unrecognized sec tion and content) FOR RECORDS PERTAINING TO PATIENTS WHO ARE OR HAVE BEEN ENROLLED IN A CHEMICAL DEPENDENCY/SUBSTANCEABUSE PROGRAM, SOME INFORMATION MAY BE OMITTED. This clinical summary was aggregated from multiple sources. Caution should be exercised in using it in the provision of clinical care. This summary normalizes information from multiple sources, and as a consequence, information in this document may materially change the coding, format and clinical context of patient data. In addition, data may be omitted in some cases. CLINICAL DECISIONS SHOULD BE BASED ON THE PRIMARY CLINICAL RECORDS. [employer] provides no warranty or guarantee of the accuracy or completeness of information in this document.
== END | disposition home or self-care (01) ==
PROVIDERS: PCP Nurse Practitioner Family; Referring Provider Nurse Practitioner Family; Visit Provider Nurse Practitioner Family
DX: M79.641 Pain in right hand (principal); M54.50 Low back pain, unspecified
CPT/HCPCS: 72100; 73120

== ENCOUNTER → 2024-06-11 | Outpatient (CLI) | payer OTHER, SELFPAY ==
[2024-06-11 17:12] LABS: Absolute Lymphocyte Count 1.25 X10^3/uL (0.83-4.51); Absolute Neutrophil Count 4.2 X10^3/uL (2.0-7.7); Basophil# 0.06 X10^3/uL; Basophil% 0.9 % (0-1); Eosinophil# 0.05 X10^3/uL; Eosinophils% 0.8 % (0-5); Hematocrit 36.5 % (40-54); Hemoglobin 13.2 g/dL (13.0-16.5); Lymphocyte # 1.25 X10^3/ul (0.83-4.51); Lymphocyte % 19.6 % (19-41); Mean Corp Hgb Conc 36.2 g/dL (32-36); Mean Corpuscular Hgb 28.8 pg (27.0-32.0); Mean Corpuscular Volume 79.5 fL (80-94); Mean Platelet Vol. 9.4 fl (6.2-12.0); Monocyte# 0.79 X10^3/uL; Monocyte% 12.4 % (0-10); NRBC Flagged by Analyzer 0 % (0-5); Neutrophil # 4.16 X10^3/uL (2.7-7.7); Neutrophil % 65.4 % (47-70); Platelet Count 227 K/mm3 (150-450); RBC Distribution Width CV 12.7 % (11.6-14.6); Red Blood Count 4.59 M/mm3 (4.6-6.2); White Blood Count 6.4 K/mm3 (4.4-11.0)
[2024-06-11 17:35] LABS: Color, Urine Amber (Yellow); Glucose, Dipstick Normal (Normal); Ketone-Dipstick Negative (Negative); Leukocyte Esterase-Dipstick Negative /ul (Negative); Nitrite-Dipstick Negative (Negative); Occult Blood-Urine Negative /ul (Negative); Protein-Dipstick 15 mg/dl (Negative); Specific Gravity, Urine 1.015 (1.002-1.030); Urine Bilirubin Dipstick Negative (Negative); Urine Clarity Turbid (Clear); Urine Urobilinogen 4 mg/dl (Normal)
[2024-06-11 18:06] LABS: ALB/GLOB Ratio 1.5 RATIO (0.9-2.4); AST(SGOT) 38 U/L (<=37); Alanine Aminotransfer ALT/SGPT 79 U/L (<=46); Albumin, Serum 4.3 g/dL (3.5-5.0); Alkaline Phosphatase 81 U/L (40-129); Anion Gap 12 (5-15); BUN 13 mg/dL (4-19); BUN/Creat Ratio 12.1 RATIO (10-20); Bilirubin, Direct 0.38 mg/dL (0.00-0.30); Calcium,Total 9.4 mg/dL (7.6-11.0); Chloride 100 mmol/L (98-108); Creatinine, Serum 1.07 mg/dL (0.70-1.20); EST Glomerular Filtration Rate 95 (>60); Globulin 2.9 g/dL (2.2-4.2); Glucose 91 mg/dL (70-99); Potassium 3.8 mmol/L (3.3-5.1); Protein, Total 7.2 g/dL (5.9-8.4); Sodium Level 135 mmol/L (133-145); Thyroid Stim Hormone (TSH) 0.975 uIU/mL (0.300-4.200); Total Bilirubin 0.93 mg/dL (0.00-1.30)
[2024-06-13 06:20] LABS: HEPATITIS B SURFACE AG Negative (Negative); Hep C Antibodies Non Reactive (Non Reactive); Hepatitis A IgM Antibody Negative (Negative); Hepatitis B Core AB IgM Negative (Negative)
== END | disposition home or self-care (01) ==
LOC: VSLAB 14:35
PROVIDERS: PCP Nurse Practitioner Family
DX: R53.83 Other fatigue (principal); R50.9 Fever, unspecified; R94.5 Abnormal results of liver function studies
CPT/HCPCS: 36415; 80053; 80074; 81002; 82248; 84443; 85025; 87086

== ENCOUNTER → 2024-06-18 | Outpatient (CLI) | payer OTHER, SELFPAY ==
--- NOTE | 2024-06-18 09:27 | US_ITS ---
EXAM: US Abdomen Limited, Right Upper Quadrant CLINICAL INDICATION: ABNORMAL RESULTS OF LIVER FUNCTION TECHNIQUE: Real-time ultrasound of the right upper quadrant with image documentation. COMPARISON: No relevant prior studies available. FINDINGS: LIVER: Liver measures 20 point 0 cm. Fatty liver. No intrahepatic bile duct dilation. GALLBLADDER: Negative Dang's sign was reported by the financial administrator. No gallstones. COMMON BILE DUCT: Unremarkable as visualized. No stones. No dilation. PANCREAS: Unremarkable as visualized. RIGHT KIDNEY: Unremarkable. No stones. No hydronephrosis. The right kidney measures 11.7 x 5.3 x 5.5 cm. US/Abdomen Limited IMPRESSION: Hepatomegaly with fatty infiltration. Reading [facility]
== END | disposition home or self-care (01) ==
LOC: US 09:26
PROVIDERS: PCP Nurse Practitioner Family
DX: R94.5 Abnormal results of liver function studies (principal)
CPT/HCPCS: 76705

== ENCOUNTER → 2024-06-21 | Outpatient (CLI) | payer OTHER, SELFPAY ==
[2024-06-21 19:37] LABS: Cholesterol 170 mg/dL (<=200); High Density Lipoprotein 32 mg/dL; Low Density Lipoprotein Calc. 109 mg/dL; Triglycerides 145 mg/dL; Very Low Density Lipoprotein 29 mg/dL (5-40); Vitamin B12 587 pg/mL (180-914); Vitamin D,25 Hydroxy 23.6 ng/mL (30-100); cholesterol:hdl ratio screen 5.25
== END | disposition home or self-care (01) ==
LOC: VSLAB 11:20
DX: R53.83 Other fatigue (principal); Z13.220 Encounter for screening for lipoid disorders; Z13.1 Encounter for screening for diabetes mellitus
CPT/HCPCS: 36415; 80061; 82306; 82607; 83036

== ENCOUNTER → 2024-08-09 | Outpatient (CLI) | payer OTHER, SELFPAY | END | disposition home or self-care (01) | LOC: SL 08:04 | DX: G47.10 Hypersomnia, unspecified (principal) | CPT/HCPCS: 95806 ==

== ENCOUNTER → 2024-10-23 | Outpatient (CLI) | payer OTHER, SELFPAY ==
--- NOTE | 2024-10-23 08:37 | RAD_ITS ---
PROCEDURE: THORACIC SPINE 3 VIEWS 10/23/2024 REASON FOR EXAM: PAIN IN THORACIC SPINE TECHNIQUE: THORACIC SPINE 3 VIEWS COMPARISON: None. RAD/Thoracic Spine 3 Views IMPRESSION: Minimal degenerative changes of the thoracic spine are seen. No fracture or subluxation is evident. No other significant osseous abnormality is evident. Reading Location: [place] [id number]
== END | disposition home or self-care (01) ==
LOC: RAD 08:36
DX: M54.6 Pain in thoracic spine (principal)
CPT/HCPCS: 72072

== ENCOUNTER → 2024-12-10 | Outpatient (CLI) | payer OTHER, SELFPAY ==
--- NOTE | 2024-12-10 15:55 | MRI_ITS ---
PROCEDURE: MRI SPINE CERVICAL (ROUTINE) 12/10/2024 REASON FOR EXAM: LEFT SCAPULA PAIN X3 MONTHS TECHNIQUE: Procedure Code: MRISPC Modality: MR Procedure: SPINE CERVICAL (ROUTINE) Multiplanar and multisequential MRI of the cervical spine was performed without contrast. COMPARISON: C-spine radiographs 11/27/2024. FINDINGS: Cervical vertebrae are preserved in height, with anatomic alignment and normal marrow signal. Straightening of the cervical lordosis may be positional or related to muscle spasm. Relatively well preserved disc height and signal intensities. No significant degenerative changes are appreciated. No disc herniation. No significant spinal canal or neural foraminal narrowing on either side. Visualized contents of the posterior fossa appear normal. Cerebellar tonsils are normally situated. The visualized spinal cord is normal in signal and contour. No mass lesion or abnormal collection within the spinal canal. Unremarkable paravertebral soft tissues. MRI/Spine Cervical (Routine) IMPRESSION: Normal cervical spine MRI. No spinal canal or foraminal narrowing. Reading Location: [facility]
== END | disposition home or self-care (01) ==
PROVIDERS: Referring Provider Student in an Organized Health Care Education/Training Program; Visit Provider Student in an Organized Health Care Education/Training Program
DX: M54.12 Radiculopathy, cervical region (principal)
CPT/HCPCS: 72141

== ENCOUNTER → 2025-01-04 | Outpatient (CLI) | payer OTHER, SELFPAY ==
--- NOTE | 2025-01-04 08:03 | MRI_ITS ---
PROCEDURE: SPINE LUMBAR (ROUTINE) 01/04/2025 REASON FOR EXAM: PAIN X8 YEARS, RADICULOPATHY BILATERAL TECHNIQUE: Procedure Code: MRISPL Modality: MR Procedure: SPINE LUMBAR (ROUTINE) COMPARISON: 18-Dec-2024 CR FINDINGS: Straightened lumbar lordosis denoting myospasm. The examined vertebrae bodies and posterior neural arches show no fracture or dislocation. Preserved lumbar vertebral bodies height. Preserved height and bright T2 WI signal of L4-L5 disc. Multilevel Schmorl's nodes and Modio II changes of the examined vertebral end plates. T12-L1: There is no focal disc pathology, central canal stenosis or neural foraminal stenosis. L1-L2: There is no focal disc pathology, central canal stenosis or neural foraminal stenosis. L2-L3: a 3.4 mm right foraminal disc protrusion seen indenting the theca and encroaching upon the related neural exit foramen inducing moderate right exiting nerve roots compression. L3-L4: a diffuse disc bulge with a 4 mm right foraminal disc protrusion seen indenting the theca and encroaching upon the related neural exit foramina inducing marked right and moderate left minimal exiting nerve roots compression. L4-L5: a 5 mm diffuse disc bulge with a right foraminal disc protrusion seen indenting the theca and encroaching upon the related neural exit foramina inducing marked exiting nerve roots compression. L5-S1: a diffuse disc bulge with a 5.2 mm left foraminal disc protrusion seen indenting the theca and encroaching upon the related neural exit foramina inducing marked left and mild right exiting nerve roots compression. The lower thoracic spinal cord, conus medullaris, and cauda equina nerve roots are unremarkable. No marrow infiltrative lesions. Paravertebral soft tissue is unremarkable. MRI/Spine Lumbar (Routine) IMPRESSION: Straightened lumbar lordosis denoting myospasm. No vertebral fractures or dislocation. L2-L3: a 3.4 mm right foraminal disc protrusion inducing moderate right exiting nerve roots compression. L3-L4: a diffuse disc bulge with a 4 mm right foraminal disc protrusion inducin g marked right and moderate left minimal exiting nerve roots compression. L4-L5: a 5 mm diffuse disc bulge with a right foraminal disc protrusion inducin g marked exiting nerve roots compression. L5-S1: a diffuse disc bulge with a 5.2 mm left foraminal disc protrusion seen i nducing marked left and mild right exiting nerve roots compression. Reading [facility]
== END | disposition home or self-care (01) ==
PROVIDERS: Referring Provider Student in an Organized Health Care Education/Training Program; Visit Provider Student in an Organized Health Care Education/Training Program
DX: M54.16 Radiculopathy, lumbar region (principal)
CPT/HCPCS: 72148

== ENCOUNTER → 2025-02-07 | Outpatient (CLI) | payer OTHER, SELFPAY ==
[2025-02-07 11:27] LABS: Hematocrit 44.8 % (40-54); Hemoglobin 14.7 g/dL (13.0-16.5); Immature Granulocytes Count 0.050 X10^3/uL (0.0-0.0); Mean Corp Hgb Conc 32.8 g/dL (32-36); Mean Corpuscular Volume 84.2 fL (80-94); Mean Platelet Vol. 10.2 fl (6.2-12.0); NRBC Flagged by Analyzer 0 % (0-5); Platelet Count 296 K/mm3 (150-450); RBC Distribution Width CV 13.0 % (11.6-14.6); RBC Distribution Width SD 39.3 fl (35.1-43.9); Red Blood Count 5.32 M/mm3 (4.6-6.2); White Blood Count 9.4 K/mm3 (4.4-11.0)
[2025-02-07 11:59] LABS: AST(SGOT) 27 U/L (<=37); Alanine Aminotransfer ALT/SGPT 43 U/L (<=46); Albumin, Serum 4.4 g/dL (3.5-5.0); Alkaline Phosphatase 88 U/L (40-129); Anion Gap 10 (5-15); BUN 16 mg/dL (4-19); BUN/Creat Ratio 15.6 RATIO (10-20); Calcium,Total 9.7 mg/dL (7.6-11.0); Carbon Dioxide 25.0 mmol/L (21.0-32.0); Chloride 103 mmol/L (98-108); Globulin 2.6 g/dL (2.2-4.2); Glucose 110 mg/dL (70-99); Potassium 4.5 mmol/L (3.3-5.1)
[2025-02-09 13:50] LABS: Bilirubin, Direct 0.15 mg/dL (0.00-0.30)
== END | disposition home or self-care (01) ==
LOC: VSLAB 08:18
DX: K76.0 Fatty (change of) liver, not elsewhere classified (principal); I10 Essential (primary) hypertension
CPT/HCPCS: 36415; 80053; 82248; 84443; 85025